=== PATIENT | male | born 1965 | race Caucasian/White ===

== ENCOUNTER 2016-12-28 18:47 | Observation (INO) | payer BC ==
--- NOTE | ~2016-12-28 | HP ---
History And Physical [facility] [address] [id number] [facility] [place] [address] NAME: ALYSSA CROOK : 61 STATUS : ADM Beth PAT#: [id number] AGE: 51 ADM/REG DATE : 12/28/16 MR#: [id number] REPORT SERV DATE: 12/29/16 DICTATED BY: GINO MULTANI DATE: 12/29/16 REPORT STATUS : Draft TRANSCRIBED BY: MODRenetta DATE: 12/29/16 DATE OF ADMISSION: 12/28/2016 CHIEF COMPLAINT: Persistent chest pain with fatigue. HISTORY OF PRESENT ILLNESS: This is a very pleasant 51-year-old white gentleman with no known history of CAD, states that yesterday December 28 around 1600 hours while at work, he is a service desk associate in a [employer], he experienced some mid-to left-sided chest pressure that did not radiate elsewhere. He denies any shortness of breath, nausea, diaphoresis, dizziness, or belching with the episode. He did feel like he needed to decrease his pace at work due to the chest discomfort. He rates the chest discomfort at its most intense a 3/10. At the time of interview in the [facility], he rates it a 2 to 3/10. He states it has been persistent. There was no change in his activity. No strenuous activity. No clear exertional component. He reports desk work for the most part and lifting nothing more than two pounds. The pain is not reproducible on exam. The patient denies any personal history of myocardial infarction, stroke, DVT, or pulmonary embolus. The patient denies any recent fever or chills, no palpitations, no syncopal episodes. Denies PND or orthopnea. PAST MEDICAL HISTORY: 1. Hypertension. 2. Cholesterol per PCP and reportedly (good). 3. Denies diabetes. PAST SURGICAL HISTORY: Left knee surgery. SOCIAL HISTORY: He is with two children. He is a service desk associate of a [employer], does not have a structured exercise routine, but does 10,000 steps on his foot daily. Denies tobacco, alcohol, or illicits. FAMILY HISTORY: No embolic events reported in first-degree relatives. REVIEW OF SYSTEMS: A fourteen-point review of systems performed, significant for HPI including home blood pressure of about 140/90 with reported fatigue since started on amlodipine and valsartan five years ago. Otherwise, complete review of systems obtained and negative. ALLERGIES: TO BEE STINGS, SWELLING. HOME MEDICINES: Vitamin C 1000 mg daily, multivitamin daily, and amlodipine/valsartan 5/160 daily. PHYSICAL EXAMINATION: VITAL SIGNS: Blood pressure 141/92, pulse 80, respirations 18, temperature 98.4, O2 saturation 95% on room air. Height 6 feet 0 inches, weight 200 pounds. BMI 27. History And Physical [address] [address] NAME: ALYSSA CROOK : 61 STATUS : ADM Beth PAT#: [id number] AGE: 51 ADM/REG DATE : 12/28/16 MR#: [id number] REPORT SERV DATE: 12/29/16 DICTATED BY: GINO MULTANI DATE: 12/29/16 REPORT STATUS : Draft TRANSCRIBED BY: MODL DATE: 12/29/16 GENERAL: Cooperative, in no apparent distress. HEENT: Pupils 2 mm, sclera nonicteric. Nares patent. Moist mucous membranes. No xanthelasma. NECK: Trachea midline, no thyromegaly. No JVD. No bruits. LYMPH: No cervical lymphadenopathy. No supraclavicular lymphadenopathy. RESPIRATORY: Unlabored respirations. Breath sounds clear bilaterally to posterior auscultation. No wheezes or rhonchi. CARDIOVASCULAR: Regular rate. No murmur, rub or gallop appreciated. EXTREMITIES: Without edema. Pulses 2+ bilaterally. ABDOMEN: Soft, nontender, nondistended, normal bowel sounds auscultated throughout. No organomegaly. SKIN: Warm, dry extremities. No pallor, or cyanosis. PSYCHIATRIC: Appropriate affect. Alert, oriented x3. LABORATORY DATA: Troponin less than 0.02 x3. Potassium 4.0, BUN 20, creatinine 1.04, glucose 85, magnesium 2.1. WBC 9.2, hemoglobin 15.1, hematocrit 44.4, and platelet count 246,000. EKG, sinus rhythm with incomplete right bundle-branch block. ASSESSMENT AND PLAN: 1. Chest pain with atypical features. The patient has been observed in the [facility] overnight to rule out myocardial infarction with serial enzymes and serial electrocardiograms, and held n.p.o. We will proceed with myocardial perfusion imaging today. The patient will be discharged home if low risk, no ischemia. If anything suggestive of ischemia, Cardiology referral will be initiated. Otherwise, the patient will be asked to follow up with primary care physician in one to two weeks with all studies being sent to that office. 2. Hypertension. Monitor blood pressure. Continue home medications. 3. Fatigue. Check a thyroid stimulating hormone and free T4. CARLEE/NIECY HAYDEN Gómez, WAIVER ANALYST-BC / [id number] CC: HAYDEN Gómez, WAIVER ANALYST-BC Markel Rose M.D.
[2016-12-28 20:34] LABS: BASOPHILS 0.2 %; BASOPHILS ABSOLUTE 0.02 10/3/uL (0.0-0.16); EOSINOPHILS 2.3 %; EOSINOPHILS ABSOLUTE 0.21 10/3/uL (0.0-0.53); ER CBC TAT 0 Hrs 07 Mins; HEMATOCRIT 44.4 % (40.0-51.0); HEMOGLOBIN 15.1 g/dL (13.6-17.8); IMMATURE GRANULOCYTES 0.1 %; IMMATURE GRANULOCYTES ABSOLUTE 0.01 10/3/uL (0.0-0.11); LYMPHOCYTES 24.6 %; LYMPHOCYTES ABSOLUTE 2.26 10/3/uL (0.67-4.30); MEAN CORPUSCULAR HEMOGLOB 29.5 pg (26.0-34.0); MEAN CORPUSCULAR VOLUME 86.7 fL (80-100); MEAN PLATELET VOLUME 9.4 fL (9.2-13.0); MONOCYTES 6.7 %; MONOCYTES ABSOLUTE 0.62 10/3/uL (0.21-1.20); NEUTROPHILS 66.1 %; NEUTROPHILS ABSOLUTE 6.08 10/3/uL (2.02-8.40); PLATELET COUNT 246 10/3/uL (150-400); RBC DISTRIBUTION WIDTH 13.5 % (12.0-16.0); RED CELL COUNT 5.12 10/6/uL (4.7-6.1); WHITE BLOOD CELLS 9.2 10/3/uL (4.5-10.5)
[2016-12-28 20:35] LABS: MANUAL DIFF NO %
[2016-12-28 20:43] LABS: PARTIAL THROMBO TIME 28.8 SEC (22.5-37.2); PROTIME (NOT ORD) 12.9 SEC (12.0-14.5)
[2016-12-28 20:50] LABS: BUN (BLOOD UREA NITROGEN) 20 MG/DL (6-23); CALCIUM, SERUM 9.4 MG/DL (8.5-10.4); CHEST PAIN PROFILE TAT 0 Hrs 23 Mins; CHLORIDE, SERUM 104 MMOL/L (96-112); CO2 (CARBON DIOXIDE) 28 MMOL/L (24-34); CREATININE 1.04 MG/DL (0.70-1.30); GFR AFRICAN AMERICAN 95 ML/MIN (>=60); GFR NON AFRICAN AMERICAN 82 ML/MIN (>=60); GLUCOSE, SERUM 85 MG/DL (60-99); SODIUM, SERUM 142 MMOL/L (135-148); TROPONIN I <0.02 NG/ML (<0.05)
[2016-12-28] MEDS ORDERED: MULTIVITAMI1 PO (22:42)
[2016-12-28] MEDS ORDERED: VITC500 PO (22:42)
[2016-12-28] MEDS ORDERED: AMLODIPINE/VALSARTAN PO (22:43)
[2016-12-29 05:22] LABS: TROPONIN I <0.02 NG/ML (<0.05)
[2016-12-29 11:46] LABS: FREE T4 0.97 NG/DL (0.76-1.46)
== END 2016-12-29 14:54 | disposition home or self-care (01) ==
LOC: ER 18:47 → CDU1 22:55
PROVIDERS: Clinical Nurse Specialist; Emergency Medicine
DX: R07.89 Other chest pain (principal); I10 Essential (primary) hypertension; R53.83 Other fatigue; Z98.890 Other specified postprocedural states; Z91.030 Bee allergy status; Z79.899 Other long term (current) drug therapy
CPT/HCPCS: 71020; 78452; 80048; 83735; 84439; 84443; 84484; 85025; 85610; 85730; 93005; 93017; 99285; A9270-GY; A9502; G0378